=== PATIENT | male | born 1985 | race Caucasian/White ===

== ENCOUNTER 2020-09-12 00:35 | Emergency (ER) | payer OTHER ==
[~2020-09-12] VITALS: Ht 167.6 cm; Wt 54.0 kg
--- NOTE | 2020-09-12 01:04 | NUR ---
PT RESISTING BLOOD DRAW. PT WAS JUST UNRESPONSIVE TO PAINFUL STIMULI, THEN WOKE UP REFUSING IV AND BLOOD DRAW WHILE TALKING HOSTILY TOWARD STAFF.
--- NOTE | 2020-09-12 01:05 | NUR ---
SECURITY AT BEDSIDE.
--- NOTE | 2020-09-12 01:43 | NUR ---
PT CONTINUES TO NOT COOPERATE WITH STAFF
--- NOTE | 2020-09-12 04:20 | NUR ---
Pt resting in bed, laying on right side, even respirations and unlabored, arousable to touch, in line of site of nursing staff. Will continue to reassess.
[2020-09-12 05:59] VITALS: BP 119/81
== END 2020-09-12 06:04 | disposition home or self-care (01) ==
LOC: ER 00:38
DX: F10.129 Alcohol abuse with intoxication, unspecified (principal); Y90.9 Presence of alcohol in blood, level not specified
CPT/HCPCS: 99284